=== PATIENT | female | born 1960 | race Caucasian/White ===

== ENCOUNTER 2016-08-09 06:50 | Inpatient (IN) | payer OTHER ==
[~2016-08-09] VITALS: Ht 157.5 cm; Wt 60.9 kg
[~2016-08-09 06:50] MED LIST: CETI-260 PO; DEXAMETHASONE SOD PHOS 4 MG/ML VIAL IVP ONE; EPHEDrine SULFATE 50 MG/ML VIAL IM ONE; ESTR1 PO; FentaNYL CITRATE-PF 100 MCG/2 ML VIAL IVP ONE; FentaNYL CITRATE-PF 250 MCG/5 ML VIAL IVP ONE; GLYCOPYRROLATE 0.2 MG/ML VIAL IM ONE; KETAMINE HCL 50 MG/ML 10 ML VIAL IVP ONE; LIDOCAINE HCL/PF 2% 5 ML VIAL IM ONE; LORA0.5T2 PO; METH10 PO; MIDAZOLAM HCL 2 MG/2 ML VIAL IVP ONE; ONDANSETRON HCL 4 MG/2 ML VIAL IVP ONE; PHENYLEPHRINE HCL 10 MG/ML VIAL IVP ONE; PROPOFOL 1% 20 ML VIAL IVP ONE; SUCCINYLCHOLINE CHLORIDE 20 MG/ML 10 ML VIAL IVP ONE
[2016-08-09] MEDS ORDERED: SODIUM CHLORIDE 0.9% 1,000 ML IV ONE ×2 (06:58→07:30)
[2016-08-09] MEDS ORDERED: CeFAZolin 2 GM/DEXTROSE 50 ML IV ONE ×2 (07:00→07:02)
[2016-08-09] MEDS ORDERED: DEXTROSE 5%-0.45% SODIUM CHL 1,000 ML IV PRN (07:53)
[2016-08-09] MEDS ORDERED: HYDROmorphone HCL 50 MG/NS/PF 100 ML IV PRN (07:53)
[2016-08-09] MEDS ORDERED: PROMETHAZINE HCL 12.5 MG in SODIUM CHLORIDE 0.9% 50 ML IV PRN (08:00)
[2016-08-09] MEDS ORDERED: NALOXONE HCL 0.4 MG/ML VIAL IM PRN (08:00)
[2016-08-09] MEDS ORDERED: PROMETHAZINE HCL 25 MG RECTAL SUPPOSITORY PR PRN (08:00)
[2016-08-09] MEDS ORDERED: NALOXONE HCL 0.4 MG/ML VIAL IVP PRN (08:00)
[2016-08-09] MEDS ORDERED: DIAZEPAM 5 MG TABLET PO ONE (08:00)
[2016-08-09] MEDS ORDERED: NALBUPHINE HCL 10 MG/ML VIAL IVP PRN (08:00)
[2016-08-09] MEDS ORDERED: ACETAMINOPHEN 1000 MG/ISO-OSM 100 ML IV ONE ×2 (08:08→16:20)
[2016-08-09 08:26] LABS: APPEARANCE,URINE CLEAR (CLEAR); GLUCOSE, URINE (UA) NEGATIVE (NEGATIVE); KETONES,URINE NEGATIVE (NEGATIVE); LEUKOCYTE ESTERASE ,URINE NEGATIVE (NEGATIVE); OCCULT BLOOD,URINE NEGATIVE (NEGATIVE); PROTEIN,URINE NEGATIVE (NEGATIVE)
[2016-08-09 08:30] LABS: ADD UA MICROSCOPIC NO
[2016-08-09] MEDS ORDERED: METHADONE HCL 10 MG TABLET PO SCH (09:00)
[2016-08-09] MEDS ORDERED: SODIUM CHLORIDE 0.9% 10 ML ONE (09:08)
[2016-08-09] MEDS ORDERED: BACITRACIN 50,000 UNITS/VIAL ONE (09:08)
[2016-08-09] MEDS: LIDOCAINE HCL 1%/EPI 1:200,000/PF 30 ML VIAL ONE ×2 (09:15→10:41)
[2016-08-09] MEDS: THROMBIN, BOVINE 20000 UNITS/VIAL POWDER TP ONE ×2 (09:15→10:41)
[2016-08-09] MEDS: ACETAMINOPHEN 1000 MG/ISO-OSM 100 ML IV SCH ×3 (09:15→23:56)
[2016-08-09] MEDS: GELATIN SPONGE,ABSORBABLE 100 MM TP ONE ×2 (09:15→10:40)
[2016-08-09] MEDS ORDERED: SODIUM CHLORIDE 0.9% 500 ML IV ONE (09:18)
[2016-08-09] MEDS ORDERED: RINGERS SOLUTION,LACTATED 2,000 ML IV ONE (09:40)
[2016-08-09] MEDS: VANCOMYCIN HCL 1 GM/VIAL ONE ×2 (10:42→14:45)
[2016-08-09] MEDS ORDERED: VANCOMYCIN HCL 1 GM/VIAL ONE (11:24)
[2016-08-09] MEDS ORDERED: PROPOFOL 1000 MG/ISO-OSM 100 ML IV ONE ×2 (12:35→14:04)
[2016-08-09] MEDS ORDERED: ACETAMINOPHEN 1000 MG/ISO-OSM 0 ML IV ONE (12:35)
[2016-08-09] MEDS ORDERED: MAG HYDROX/AL HYDROX/SIMETH 30 ML SUSP UDCUP PO PRN (13:15)
[2016-08-09] MEDS ORDERED: DiphenhydrAMINE HCL 50 MG/ML VIAL IVP PRN (13:15)
[2016-08-09] MEDS ORDERED: ZOLPIDEM TARTRATE 10 MG TABLET PO PRN (13:15)
[2016-08-09] MEDS ORDERED: MEPERIDINE-PF 25 MG/ML SYRINGE IVP PRN (13:30)
[2016-08-09] MEDS ORDERED: LORazepam 0.5 MG TABLET PO PRN (13:30)
[2016-08-09] MEDS ORDERED: LIDOCAINE HCL 1%/EPI 1:200,000/PF 30 ML VIAL ONE (13:48)
[2016-08-09] MEDS ORDERED: RINGERS SOLUTION,LACTATED 1,000 ML IV ONE ×2 (14:04→16:23)
[2016-08-09] MEDS: HYDROmorphone 2 MG/ML SYRINGE IVP PRN ×2 (16:05→16:15)
[2016-08-09] MEDS ORDERED: HYDROmorphone 2 MG/ML SYRINGE ONE (16:26)
[2016-08-09] MEDS: FentaNYL CITRATE-PF 100 MCG/2 ML VIAL IVP PRN ×2 (16:58→17:03)
[2016-08-09] MEDS: PROMETHAZINE HCL 25 MG/ML VIAL IM PRN (17:00)
[2016-08-09] MEDS ORDERED: FentaNYL CITRATE-PF 100 MCG/2 ML VIAL ONE (17:00)
[2016-08-09] MEDS ORDERED: PROMETHAZINE HCL 25 MG/ML VIAL ONE (17:05)
[2016-08-09 17:30] VITALS: BP 115/64
[2016-08-09 19:44] VITALS: BP 134/79
[2016-08-09] MEDS ORDERED: OXYGEN THERAPY IH SCH (20:00)
[2016-08-09] MEDS ORDERED: CYCLOBENZAPRINE HCL 10 MG TABLET PO SCH (21:00)
[2016-08-09] MEDS: ONDANSETRON HCL 4 MG/2 ML VIAL IVP PRN (21:34)
[2016-08-09 23:42] VITALS: BP 149/94
[2016-08-09] MEDS: METOCLOPRAMIDE HCL 5 MG/ML 2 ML VIAL IVP PRN (23:44)
[2016-08-09] MEDS: OXYGEN THERAPY IH SCH (23:57)
[2016-08-10] VITALS (13 sets, daily range): BP systolic 112–147; BP diastolic 65–91
[2016-08-10] MEDS: DiphenhydrAMINE HCL 50 MG/ML VIAL IVP PRN ×2 (01:29→15:09)
[2016-08-10] MEDS ORDERED: PNEUMOCOCCAL VACCINE POLYVALENT 0.5 ML VIAL [PPSV23] IM ONE (03:30)
[2016-08-10] MEDS: HYDROmorphone 2 MG/ML SYRINGE IVP PRN ×10 (03:50→23:46)
[2016-08-10] MEDS: ONDANSETRON HCL 4 MG/2 ML VIAL IVP PRN (05:24)
[2016-08-10 06:16] LABS: BASOPHILS % (AUTO) 0.2 % (0.0-2.0); EOSINOPHILS % (AUTO) 0 % (1.0-6.0); HEMATOCRIT 33.3 % (36-46); HEMOGLOBIN 10.9 g/dL (12.0-16.0); LYMPHOCYTES # (AUTO) 1.2 K/uL (1.0-4.8); LYMPHOCYTES % (AUTO) 8.5 % (22.0-44.0); MEAN CORPUSCULAR HEMOGLOBIN 26.9 pg (26.0-34.0); MEAN CORPUSCULAR HGB CONC 32.7 G/dL (31.0-37.0); MEAN CORPUSCULAR VOLUME 82 fL (80-100); MONOCYTES # (AUTO) 0.5 K/uL (0.1-1.0); MONOCYTES % (AUTO) 3.8 % (2.0-9.0); NEUTROPHILS # (AUTO) 11.9 K/uL (1.8-7.7); PLATELET COUNT (AUTO) 202 K/uL (150-450); RED BLOOD CELL COUNT(AUTO) 4.06 MIL/uL (4.00-5.20); RED CELL DISTRIBUTION WIDTH 13.1 % (11.5-14.5); WHITE BLOOD COUNT (AUTO) 13.6 K/uL (4.5-11.0)
[2016-08-10] MEDS: METOCLOPRAMIDE HCL 5 MG/ML 2 ML VIAL IVP PRN (06:25)
[2016-08-10 06:42] LABS: CALCIUM, TOTAL 8.5 mg/dL (8.8-10.5); CREATININE 1.15 mg/dL (0.60-1.30); POTASSIUM 3.5 mmol/L (3.5-5.1)
[2016-08-10 06:59] LABS: NEUTROPHILS % (AUTO) 87.5 % (40.0-70.0)
[2016-08-10] MEDS: ACETAMINOPHEN 1000 MG/ISO-OSM 100 ML IV SCH (07:36)
[2016-08-10] MEDS: DOCUSATE SODIUM 100 MG CAPSULE PO SCH ×2 (07:37→21:29)
[2016-08-10] MEDS: DIAZEPAM 5 MG TABLET PO SCH ×2 (07:38→21:29)
[2016-08-10] MEDS: ESTRADIOL 1 MG TABLET PO SCH (07:50)
[2016-08-10] MEDS: METHADONE HCL 10 MG TABLET PO SCH ×2 (07:50→21:29)
[2016-08-10] MEDS ORDERED: CYCLOBENZAPRINE HCL 10 MG TABLET PO SCH ×2 (08:00→09:00)
[2016-08-10] MEDS ORDERED: MEPERIDINE-PF 25 MG/ML SYRINGE IM ONE (08:15)
[2016-08-10] MEDS ORDERED: PROMETHAZINE HCL 25 MG/ML VIAL IM ONE (08:15)
[2016-08-10] MEDS ORDERED: METHADONE HCL 10 MG TABLET PO ONE (08:30)
[2016-08-10] MEDS: OXYGEN THERAPY IH SCH ×2 (08:33→21:29)
[2016-08-10] MEDS ORDERED: OxyCODONE HCL 5 MG IR TABLET PO PRN (12:30)
[2016-08-10] MEDS ORDERED: PROMETHAZINE HCL 25 MG/ML VIAL IM PRN (18:00)
[2016-08-10] MEDS ORDERED: NICOTINE 14 MG/24 HOUR PATCH TD SCH (18:00)
[2016-08-10] MEDS ORDERED: MEPERIDINE-PF 25 MG/ML SYRINGE IM PRN (18:00)
[2016-08-10] MEDS: PROMETHAZINE HCL 25 MG/ML VIAL IM PRN (18:02)
[2016-08-10] MEDS ORDERED: KETAMINE HCL 500 MG in DEXTROSE 5%-WATER 490 ML IV PRN (18:15)
[2016-08-10] MEDS ORDERED: SODIUM CHLORIDE 0.9% 500 ML IV ONE (18:19)
[2016-08-11] VITALS (8 sets, daily range): BP systolic 106–141; BP diastolic 64–87
[2016-08-11] MEDS: HYDROmorphone 2 MG/ML SYRINGE IVP PRN ×4 (01:50→07:38)
[2016-08-11] MEDS: METOCLOPRAMIDE HCL 5 MG/ML 2 ML VIAL IVP PRN (03:14)
[2016-08-11] MEDS: DIAZEPAM 5 MG TABLET PO SCH ×2 (08:36→20:36)
[2016-08-11] MEDS: METHADONE HCL 10 MG TABLET PO SCH ×2 (08:37→20:36)
[2016-08-11] MEDS: ACETAMINOPHEN 325 MG TABLET PO SCH ×4 (08:37→20:36)
[2016-08-11] MEDS: ESTRADIOL 1 MG TABLET PO SCH (11:00)
[2016-08-11] MEDS: DOCUSATE CALCIUM 240 MG CAPSULE PO SCH (11:00)
[2016-08-11] MEDS ORDERED: MAGNESIUM HYDROXIDE SUSPENSION 30 ML UDCUP PO PRN (16:15)
[2016-08-11] MEDS: OXYGEN THERAPY IH SCH (20:00)
[2016-08-12 02:59] VITALS: BP 106/65
[2016-08-12 08:00] VITALS: BP 105/69
[2016-08-12] MEDS: ESTRADIOL 1 MG TABLET PO SCH (08:02)
[2016-08-12] MEDS: DOCUSATE CALCIUM 240 MG CAPSULE PO SCH (08:03)
[2016-08-12] MEDS: METHADONE HCL 10 MG TABLET PO SCH (08:03)
[2016-08-12] MEDS: ACETAMINOPHEN 325 MG TABLET PO SCH ×2 (08:03→12:54)
[2016-08-12] MEDS: DIAZEPAM 5 MG TABLET PO SCH (08:03)
[2016-08-12 09:07] VITALS: BP 105/69
[2016-08-12] MEDS ORDERED: METH5TAB2 PO (11:40)
[2016-08-12] MEDS ORDERED: METH10TA2 PO (11:40)
[2016-08-12] MEDS ORDERED: HYDR2TAB35 PO (11:46)
[2016-08-12] MEDS ORDERED: HYDR8TAB2 PO (11:46)
[2016-08-12] MEDS ORDERED: DIAZ10TA PO (11:47)
[2016-08-12] MEDS ORDERED: DSSL PO (11:48)
[2016-08-12] MEDS ORDERED: DOCU-174 PO (11:49)
[2016-08-12] MEDS ORDERED: ACET-784 PO (11:50)
[2016-08-12 12:50] VITALS: BP 117/63
== END 2016-08-12 13:50 | disposition home or self-care (01) | DRG 455 ==
LOC: INTOOBSV 06:50 → OBSVTOIN 06:50 → 4E 06:50
PROVIDERS: ADMIT Neurological Surgery; ATTEND Neurological Surgery
PROC: 0SG1071 Fusion of 2 or more Lumbar Vertebral Joints with Autologous Tissue Substitute, Posterior Approach, Posterior Column, Open Approach (ICD-10-PCS; 2016-08-09)
PROC: 0ST20ZZ Resection of Lumbar Vertebral Disc, Open Approach (ICD-10-PCS; 2016-08-09)
PROC: 4A11X4G Monitoring of Peripheral Nervous Electrical Activity, Intraoperative, External Approach (ICD-10-PCS; 2016-08-09)
PROC: 0SG10A0 Fusion of 2 or more Lumbar Vertebral Joints with Interbody Fusion Device, Anterior Approach, Anterior Column, Open Approach (ICD-10-PCS; principal; 2016-08-09 10:20)
PROC: 3E0234Z Introduction of Serum, Toxoid and Vaccine into Muscle, Percutaneous Approach (ICD-10-PCS; 2016-08-12)
DX: M51.26 Other intervertebral disc displacement, lumbar region (principal); D64.9 Anemia, unspecified; J45.909 Unspecified asthma, uncomplicated; G89.29 Other chronic pain; F41.9 Anxiety disorder, unspecified; L27.0 Generalized skin eruption due to drugs and medicaments taken internally; N18.3 Chronic kidney disease, stage 3 (moderate); T40.2X5A Adverse effect of other opioids, initial encounter; X58.XXXA Exposure to other specified factors, initial encounter; Y92.239 Unspecified place in hospital as the place of occurrence of the external cause; Z90.710 Acquired absence of both cervix and uterus; Z88.5 Allergy status to narcotic agent; Z79.899 Other long term (current) drug therapy; Z23 Encounter for immunization; Y93.89 Activity, other specified; Y99.8 Other external cause status
CPT/HCPCS: 72100; 86850; 86900; 86901; 86920; 87081; 90471; 94760; 97110; 97116; 97162; 97166; 97530; 97535; C1713; G0238; J0131; J0330; J0690; J1100; J1170; J1200; J2175; J2250; J2370; J2405; J2550; J2704; J2765; J3010; J3370; J3490; J7030; J7040; J7050; J7060; J7120